=== PATIENT | male | born 1960 | race Caucasian/White ===

== ENCOUNTER 2016-12-09 10:02 | Day surgery (SDC) | payer OTHER ==
[~2016-12-09] VITALS: Ht 165.1 cm; Wt 64.9 kg
[2016-12-09 11:07] VITALS: Ht 165.1 cm; Wt 64.9 kg
[2016-12-09] MEDS ORDERED: OMEPRAZOLE (11:16)
[2016-12-09] MEDS ORDERED: SIMVASTATIN (11:16)
[2016-12-09] MEDS ORDERED: ACTOS (11:16)
[2016-12-09] MEDS ORDERED: METFORMIN (11:16)
[2016-12-09] MEDS ORDERED: LISINOPRIL (11:16)
[2016-12-09] MEDS ORDERED: ASPIRIN PO (11:16)
[2016-12-09 11:41] VITALS: BP 137/73; PULSE 63; RESP 18
[2016-12-09] MEDS ORDERED: FENTAnyl 50 MCG/ML VIAL ONE (12:41)
[2016-12-09] MEDS ORDERED: MIDAZOLAM 1 MG/ML 2 ML INJ ONE ×2 (12:41)
--- NOTE | 2016-12-09 12:42 | OPPN ---
Date/Time of Note Date/Time of Note DATE: 12/09/16 TIME: 12:40 Operative Report Preoperative Diagnosis SCREENING COLONOSCOPY Postoperative Diagnosis NORMAL COLON EXCEPT SMALL FEW DIVERTICULOSIS IN LEFT COLON Operation/Procedure Performed COLONOSCOPY SCREENING Provider: SAL DE LOS SANTOS MD Anesthesia Type: moderate sedation (VERSED 4MG/FENTANYL 100MCG) Estimated blood loss: none Transfusion Required: no Specimen: none Grafts/Implants: none Complications: no SAL DE LOS SANTOS MD Dec 09, 2016 12:42 pm
[2016-12-09 13:04] VITALS: BP 95/63; RESP 18
--- NOTE | 2016-12-09 20:14 | GILP ---
DATE OF PROCEDURE: 12/09/2016 PREOPERATIVE DIAGNOSES: 1. Screening colonoscopy. 2. History of diarrhea. POSTOPERATIVE DIAGNOSES: 1. Few diverticula in the left colon. 2. Otherwise, essentially normal colonoscopy. DESCRIPTION OF PROCEDURE: Patient was put in left lateral decubitus after obtaining informed consent. He was sedated, monitored on oximetry, EKG, blood pressure; 4 mg IV Versed and 100 mcg of fentanyl given during the procedure. I advanced an Olympus video adult colonoscope all the way to ileocecal valve, appendix, cecum examined. Photography done of the appendix, the ileocecal valve, and ascending colon, unremarkable. Hepatic flexure had some stool, as well as the transverse colon. This was washed by mechanical irrigation and continuous irrigation and lavage, clearing most of it and examining the transverse colon and hepatic flexure unremarkable. In the left colon there was evidence of few scattered diverticula, but not significant. Descending colon and sigmoid colon otherwise unremarkable. Rectum, including retroflexion is normal. Upon removal of the scope, patient had no complication. PLAN: Will be to recommend repeat colonoscopy in 10 years. Follow up with you in your office. Dictated By: Es Greco MD /aung/baldomero /Document#: [id number] CC: Es Greco MD; KENDRICK PRESLEY MD;*[facility]*
== END 2016-12-09 15:26 | disposition home or self-care (01) ==
LOC: GIL 10:02
PROVIDERS: ATTEND Internal Medicine
DX: Z12.11 Encounter for screening for malignant neoplasm of colon (principal); K57.90 Diverticulosis of intestine, part unspecified, without perforation or abscess without bleeding; E11.9 Type 2 diabetes mellitus without complications; I10 Essential (primary) hypertension; E78.5 Hyperlipidemia, unspecified
CPT/HCPCS: 45378; 82962; J2250; J3010; Z7610